=== PATIENT | female | born 1975 | race Caucasian/White ===

== ENCOUNTER 2019-05-24 14:12 | Inpatient (IN) | payer OTHER ==
[2019-05-24] MEDS ORDERED: Acetaminophen 500 MG TAB PO PRN (14:52)
[2019-05-24] MEDS ORDERED: Lidocaine 1% (PF) 30 ML VIAL SC PRN (14:52)
[2019-05-24] MEDS ORDERED: Misoprostol 200 MCG TAB PR PRN (14:52)
[2019-05-24] MEDS ORDERED: hydrALAZINE 20 MG/ML VIAL SLOW IVP PRN (14:52)
[2019-05-24] MEDS ORDERED: HYDROcodone/Acetaminophen 5/325 mg Tablet PO PRN ×2 (14:52)
[2019-05-24] MEDS ORDERED: Methylergonovine 0.2 MG/ML VIAL IM PRN (14:52)
[2019-05-24] MEDS ORDERED: Zolpidem Tartrate 5 MG TAB PO PRN (14:52)
[2019-05-24] MEDS ORDERED: Promethazine HCl 25 MG/ML VIAL IM PRN (14:52)
[2019-05-24] MEDS ORDERED: Butorphanol Tartrate 1 MG/ML VIAL SLOW IVP PRN (14:52)
[2019-05-24] MEDS ORDERED: Diphenoxylate HCl/Atropine Tablet PO PRN ×2 (14:52)
[2019-05-24] MEDS ORDERED: NS / Oxytocin 40 units/1000ml 1,000 ML IV PRN (14:52)
[2019-05-24] MEDS ORDERED: Ibuprofen 800 MG TAB PO PRN (14:52)
[2019-05-24] MEDS ORDERED: Carboprost 250 MCG/ML AMP IM PRN (14:52)
[2019-05-24] MEDS ORDERED: Docusate 100 MG CAP PO PRN (14:52)
[2019-05-24] MEDS ORDERED: Ondansetron PF 4 MG/2 ML Vial IVP PRN (14:52)
[2019-05-24 14:54] VITALS: BMI 35.4
[2019-05-24] MEDS ORDERED: NS w/ Oxytocin 10 units 500 ML IV SCH ×2 (15:00)
--- NOTE | 2019-05-24 15:02 | PDOC.LDHP ---
Labor and Delivery H&P HPI: 43 y/o at 37 and 1/7 weeks presents for medical induction of labor. Patient is high risk for AMA, and 1 hr-GTT at 220, no 3 hour done, and than strict diet control of her blood sugars with relatively normal results not requiring medication. Patient started weekly antepartum surveillance at 34 weeks. Today, BPP was done in the office and was only 2/8. Patient had not eaten yet. We let patient have a meal and repeated in 90 minutes. The repeat BPP was only 4/8 (-2 for tone and -2 for movement). KIERSTEN normal. There does appear to be a large volume of balled up umbilical cord in front of the neck region. Patient given option for further monitoring and repeat BPP at the hospital, but induction of labor was recommended at 37 weeks with non- reassuring testing. The patient and her have chosen induction of labor. Current gestational age (weeks): 38 Due date: 06/13/19 Grav: 5 Para: 3 Current complications: gestational diabetes Abnormal US findings: Yes (4/8 BPP) Current medications: pre-delta vitamins Previous surgical history: none Allergies/Adverse Reactions: Allergies Allergy/AdvReac Type Severity Reaction Status Date / Time Penicillins Allergy Severe Anaphylaxis Verified 05/24/19 14:54 Social history: none - Physical Exam Vital signs reviewed and normal: yes General: NAD, resting Heart: RRR Lungs: CTAB Abdomen: gravid Extremeties: no edema FHT: category 1 - Assessment L&D Assessment: medically indicated induction (GDM, Non-reassuring testing today with 2/8 BPP, and repeated 4/8 BPP.) - Plan Plan: admit to L&D, cervical ripening
[2019-05-24] MEDS: Lactated Ringer's 1,000 ML IV SCH (16:04)
[2019-05-24 16:11] LABS: Hemoglobin 11.9 g/dL (12.0-16.0); Mean Corpuscular HGB CONC 34.5 g/dL (32.0-36.0); Mean Corpuscular Hemoglobin 31.9 pg (27.0-31.0); Mean Corpuscular Volume 92.4 fL (78.0-98.0); Mean Platelet Volume 8.7 fL (7.4-10.4); Platelet Count 234 thou/uL (130-400); RBC Distribution Width 13.1 % (11.5-14.5); Red Blood Cell (RBC) Count 3.75 mill/uL (4.20-5.40); White Blood Cell (WBC) Count 9.5 thou/uL (4.8-10.8)
[2019-05-24] MEDS: Misoprostol 100 MCG TAB VAG SCH ×2 (16:19→20:40)
[2019-05-24 16:53] LABS: HBSAg Index 0.23 S/CO (0-0.99); Hep B Surf Ag Non-Reactive S/CO (NonReactive)
[2019-05-24 17:04] LABS: Syphilis Antibody Nonreactive (Nonreactive); Syphilis Antibody Index 0.07 S/CO (<1.00 Non-Reactive)
[2019-05-25] MEDS: Lactated Ringer's 1,000 ML IV SCH ×2 (02:10→15:34)
[2019-05-25] MEDS ORDERED: Preparation H Ointment 28 GM TUBE PR PRN (12:11)
[2019-05-25] MEDS ORDERED: Misoprostol 200 MCG TAB VAG PRN (12:11)
[2019-05-25] MEDS ORDERED: Methylergonovine 0.2 MG/ML VIAL IM PRN (12:11)
[2019-05-25] MEDS ORDERED: Ondansetron PF 4 MG/2 ML Vial IVP PRN (12:11)
[2019-05-25] MEDS ORDERED: Milk Of Magnesia 30 ML UDCUP PO PRN (12:11)
[2019-05-25] MEDS ORDERED: Bisacodyl 10 MG SUPP PR PRN (12:11)
[2019-05-25] MEDS ORDERED: diphenhydrAMINE 25 MG CAP PO PRN (12:11)
[2019-05-25] MEDS ORDERED: Benzocaine-Menthol 82.5 ML CAN TOP PRN (12:11)
[2019-05-25] MEDS ORDERED: Lanolin Ointment 7 GM TUBE TOP PRN (12:11)
[2019-05-25] MEDS ORDERED: HYDROcodone/Acetaminophen 5/325 mg Tablet PO PRN ×2 (12:11)
[2019-05-25] MEDS ORDERED: hydrALAZINE 20 MG/ML VIAL SLOW IVP PRN (12:11)
[2019-05-25] MEDS ORDERED: Zolpidem Tartrate 5 MG TAB PO PRN (12:11)
[2019-05-25] MEDS ORDERED: Promethazine HCl 25 MG/ML VIAL IM PRN (12:11)
[2019-05-25] MEDS ORDERED: NS / Oxytocin 40 units/1000ml 1,000 ML IV SCH (12:11)
[2019-05-25] MEDS: Ibuprofen 800 MG TAB PO SCH ×2 (14:15→21:17)
[2019-05-25] MEDS ORDERED: FLU VACC QS2019-20(6MOS UP)/PF 60 MCG/0.5 ML SYRINGE IM ONE (15:00)
[2019-05-25] MEDS: Misoprostol 100 MCG TAB VAG SCH ×2 (15:33→15:34)
[2019-05-25] MEDS: Ferrous Sulfate 325 MG TAB PO SCH (15:34)
[2019-05-25] MEDS: Docusate Calcium (SURFAK) 240 MG CAP PO SCH (21:17)
[2019-05-26] MEDS: Ibuprofen 800 MG TAB PO SCH (05:33)
[2019-05-26 05:54] LABS: Hemoglobin 10.2 g/dL (12.0-16.0); Mean Corpuscular HGB CONC 34.1 g/dL (32.0-36.0); Mean Corpuscular Hemoglobin 31.7 pg (27.0-31.0); Mean Corpuscular Volume 93.1 fL (78.0-98.0); Mean Platelet Volume 8.5 fL (7.4-10.4); Platelet Count 208 thou/uL (130-400); RBC Distribution Width 12.7 % (11.5-14.5); Red Blood Cell (RBC) Count 3.23 mill/uL (4.20-5.40)
[2019-05-26 08:15] VITALS: BP 100/55; TEMP 98.6
[2019-05-26] MEDS ORDERED: Prenatal Vitamin 1 TAB PO SCH (09:00)
[2019-05-26] MEDS: Ferrous Sulfate 325 MG TAB PO SCH (09:28)
[2019-05-26] MEDS: Docusate Calcium (SURFAK) 240 MG CAP PO SCH (09:29)
[2019-05-26] MEDS ORDERED: Varicella virus, LIVE 0.5 ML VIAL SC ONE (12:11)
[2019-05-26] MEDS ORDERED: Measles/Mumps/Rubella 10 MCG/0.5 ML VIAL SC ONE (12:11)
[2019-05-26] MEDS ORDERED: Adacel (T-DAP) 0.5 ML SYRINGE IM ONE (12:11)
--- NOTE | 2019-05-26 16:14 | PDOC.PP ---
Post Progress Note Post Day #: 1 PO intake tolerated: yes Flatus: yes Ambulation: yes Vital Signs (12 hours) Temp Pulse Resp BP Pulse Ox 05/26/19 08:14 98.6 F 77 20 100/55 L 95 05/26/19 05:40 98.8 F 72 16 101/53 L Weight Weight 200 lb - Physical Examination General: NAD Cardiovascular: no m/r/g, RRR Respiratory: clear to auscultation bilaterally, non-labored breathing Abdominal: + bowel sounds, lochia, no distention Extremities: negative homans (B) Skin: CS incision dry & intact, no rash Neurological: no gross focal deficits Psychiatric: A&Ox3, normal affect Result Diagrams: 05/26/19 05:30 Additional Labs: Post Labs Blood Type A POSITIVE 05/24/19 16:47 Hep Bs Antigen Non-Reactive S/CO (NonReactive) 05/24/19 15:59
--- NOTE | 2019-05-27 01:20 | DN ---
DATE OF PROCEDURE: 05/25/2019 TIME OF SERVICE: At 0836, Central Standard Time. PREOPERATIVE DIAGNOSIS: Intrauterine at 37 weeks and 2 days with a high-risk complicated by gestational diabetes, diagnosed initially with a 1 hour glucose challenge test of 220. The patient was then diet controlled with Accu-Cheks done at home were reported relatively well controlled blood sugars. Regardless, the patient has began undergoing biophysical profiles and nonstress test in the clinic weekly starting at 34 weeks and 37 weeks. She presented with a biophysical profile of 2/10. The patient claimed she had not eaten and even wanted to try having a meal and repeating the test in clinic. We repeated the test in approximately 90 minutes after she had eaten and drank orange juice. The biophysical profile was now only 4/8, -2 for movement, -2 for tone. The patient was then given the choice of going in for induction of labor at 37 weeks, which seemed like the best option, although we also discussed continued monitoring and repeating the biophysical profile, if she preferred. The patient and her discussed the option and chose induction of labor. POSTOPERATIVE DIAGNOSIS: Intrauterine at 37 weeks and 2 days with a high-risk complicated by gestational diabetes, diagnosed initially with a 1 hour glucose challenge test of 220. The patient was then diet controlled with Accu-Cheks done at home were reported relatively well controlled blood sugars. Regardless, the patient has began undergoing biophysical profiles and nonstress test in the clinic weekly starting at 34 weeks and 37 weeks. She presented with a biophysical profile of 2/10. The patient claimed she had not eaten and even wanted to try having a meal and repeating the test in clinic. We repeated the test in approximately 90 minutes after she had eaten and drank orange juice. The biophysical profile was now only 4/8, -2 for movement, -2 for tone. The patient was then given the choice of going in for induction of labor at 37 weeks, which seemed like the best option, although we also discussed continued monitoring and repeating the biophysical profile, if she preferred. The patient and her discussed the option and chose induction of labor. PROCEDURE: Induction of labor resulting in spontaneous vaginal delivery over intact perineum. FINDINGS: Viable female weighing 2965 g or 6 pounds 9 ounces, Apgars 9 and 9. QUANTITATIVE BLOOD LOSS: 151 mL. COMPLICATIONS: None. PROCEDURE IN DETAIL: The patient presented to [facility] where she was admitted to the labor and delivery service. The patient underwent a normal and uneventful labor with normal cervical dilatation until she was found to be completely dilated. She was then allowed to push and was able to bring the baby down and delivered the baby in a vertex presentation without difficulties. Once the head delivered in occiput anterior position, the shoulders followed spontaneously along with the rest of the baby's body. Once out the baby's mouth and nose were bulb suctioned. The cord was clamped and cut and baby was handed to waiting attendants. Cord blood was collected. Gentle fundal massage was performed and the placenta delivered intact without problems. Hemostasis was assured. Quantitative blood loss was calculated. Inspection of the cervix, vaginal vault, and perineum did not reveal any lacerations needing suturing. Once again, hemostasis was within normal limits and the patient was allowed to recover in the labor and delivery room. Baby went to nursery. Job ID: [id number]
== END 2019-05-26 17:30 | disposition home or self-care (01) | DRG 807 ==
LOC: L&D/OP 14:12 → L&D 14:38 → 3SW 05-25 10:50
PROVIDERS: ADMIT Obstetrics & Gynecology; ATTEND Obstetrics & Gynecology
PROC: 10E0XZZ Delivery of Products of Conception, External Approach (ICD-10-PCS; principal; 2019-05-24)
PROC: 3E0P7VZ Introduction of Hormone into Female Reproductive, Via Natural or Artificial Opening (ICD-10-PCS; 2019-05-24)
PROC: 10907ZC Drainage of Amniotic Fluid, Therapeutic from Products of Conception, Via Natural or Artificial Opening (ICD-10-PCS; 2019-05-24)
DX: O24.420 Gestational diabetes mellitus in childbirth, diet controlled (principal); Z37.0 Single live birth; Z3A.38 38 weeks gestation of pregnancy; Z88.0 Allergy status to penicillin
CPT/HCPCS: 36415; 85027; 86780; 86850; 86900; 86901; 87340; J0595